=== PATIENT | male | born 1995 | race Caucasian/White ===

== ENCOUNTER 2018-12-22 10:44 | Inpatient (IN) | payer BC ==
[~2018-12-22] VITALS: Ht 170.2 cm; Wt 54.0 kg
[2018-12-22 11:04] VITALS: BP 108/74
--- NOTE | 2018-12-22 11:07 | NUR ---
ED Nurse Note: pt walked in to ER c/o Nausea and vomiting with blood in it and abdominal pain 07/14. pt currently vomiting saliva. pt aao x4 and skin clean but cool to touch and pale. pt ambulatory and cooperative.
[2018-12-22] MEDS ORDERED: Morphine Sulfate 4mg/ml Inj (IV USE ONLY) IVP ONE ×2 (11:15→12:15)
[2018-12-22 11:31] LABS: HEMATOCRIT 49.1 % (42.0-52.0); HEMOGLOBIN 17.2 G/DL (14.2-18.0); MEAN CORPUSCULAR VOLUME 89 FL (80-99); PLATELET COUNT 275 K/UL (150-450); RED BLOOD COUNT 5.49 M/UL (4.70-6.10); RED CELL DISTRIBUTION WIDTH 11.2 % (11.6-14.8)
[2018-12-22 11:33] LABS: WHITE BLOOD COUNT 22.9 K/UL (4.8-10.8)
[2018-12-22 11:44] LABS: ANION GAP 18 mmol/L (5-15); BLOOD UREA NITROGEN 26 mg/dL (7-18); CALCIUM 9.3 MG/DL (8.5-10.1); CARBON DIOXIDE 24 MMOL/L (21-32); CHLORIDE 100 MMOL/L (98-107); CREATININE 1.2 MG/DL (0.55-1.30); POTASSIUM 3.3 MMOL/L (3.5-5.1); SODIUM 142 MMOL/L (136-145)
[2018-12-22 11:54] LABS: ALANINE AMINOTRANSFERASE 1165 U/L (12-78); ALBUMIN 4.5 G/DL (3.4-5.0); ALBUMIN/GLOBULIN RATIO 1.3 (1.0-2.7); ALKALINE PHOSPHATASE 166 U/L (46-116); ASPARTATE AMINO TRANSFERASE 1296 U/L (15-37); BILIRUBIN,TOTAL 1.3 MG/DL (0.2-1.0)
[2018-12-22 11:55] LABS: BILIRUBIN,DIRECT 0.7 MG/DL (0.0-0.3)
[2018-12-22 12:02] VITALS: BP 138/84
--- NOTE | 2018-12-22 12:14 | NUR ---
ED Nurse Note: Patient c/o pain all over the body and HR increased to 145 @ 1200. EKG performed and reviewed by Dr. Saunders. Report given to Audi Rutledge RN.
--- NOTE | 2018-12-22 12:23 | NUR ---
ED Nurse Note: spoke to pt's mom and updated on pt's condition and possible admission. she agreed. pt was informed as well and agreed.
--- NOTE | 2018-12-22 12:27 | NUR ---
ED Nurse Note: mother [phone] or [phone]
[2018-12-22] MEDS ORDERED: Isovue-300 100ml vial INJ PRN (12:30)
[2018-12-22 13:13] LABS: APPEARANCE,URINE CLEAR; BILIRUBIN, URINE NEGATIVE (NEGATIVE); COLOR,URINE PALE YELLOW; GLUCOSE, URINE (UA) NEGATIVE (NEGATIVE); KETONES,URINE 4+ (NEGATIVE); LEUKOCYTE ESTERASE ,URINE NEGATIVE (NEGATIVE); NITRITE,URINE NEGATIVE (NEGATIVE); PH,URINE 5 (4.5-8.0); PROTEIN,URINE 1+ (NEGATIVE); UROBILINOGEN,URINE NORMAL MG/DL (0.0-1.0)
--- NOTE | 2018-12-22 13:50 | NUR ---
ED Nurse Note: pt requested food and drink. Received verbal order that pt cannot eat and drink besides ice chips. ice chips provided.
--- NOTE | 2018-12-22 13:54 | Emergency Room Report ---
History of Present Illness General Chief Complaint: Abdominal Pain Source: Patient Present Illness HPI Patient presents emergency department today complaint severe epigastric pain associate nausea and vomiting. Patient states that he was drinking very heavily last night. He does not usually drink a large amount alcohol although in the past he has gotten severely ill from drinking a large amount alcohol and binge drinking. Patient denies any drug use. Denies any fever chest pain or shortness of breath. Pain is worse in the epigastrium. Denies any rectal bleeding hemoptysis. Symptoms noted to be severe.No other modifying factors. No other associated signs and symptoms. No other complaints were noted. Allergies: Coded Allergies: No Known Allergies (Unverified , 12/22/18) Patient History Past Medical History: none Past Surgical History: none Pertinent Family History: none Social History: Reports: alcohol use Reviewed Nursing Documentation: PMH: Agreed; PSxH: Agreed Nursing Documentation-PMH Past Medical History: No Stated History Review of Systems All Other Systems: negative except mentioned in HPI Physical Exam Vital Signs Date Time Temp Pulse Resp B/P (MAP) Pulse Ox O2 Delivery O2 Flow Rate FiO2 12/22/18 10:48 95.9 115 20 137/92 97 Room Air Sp02 EP Interpretation: reviewed, normal General Appearance: alert, severe distress Head: atraumatic Eyes: bilateral eye normal inspection ENT: normal ENT inspection, hearing grossly normal, normal voice Neck: normal inspection, full range of motion, supple, no bony tend Respiratory: normal inspection, lungs clear, normal breath sounds, no respiratory distress, no retraction, no wheezing Cardiovascular #1: no edema, tachycardia Gastrointestinal: normal inspection, normal bowel sounds, soft, no guarding, no hernia, tenderness - Epigastric Genitourinary: no CVA tenderness Musculoskeletal: normal inspection, back normal, normal range of motion Neurologic: normal inspection, alert, responsive, speech normal Psychiatric: normal inspection, judgement/insight normal, mood/affect normal Skin: normal inspection, normal color, no rash Medical Decision Making Diagnostic Impression: Primary Impression: Alcoholic hepatitis Additional Impressions: Abdominal pain Intractable vomiting Renal mass ER Course Patient presents to the emergency department today complaining of abdominal pain. Differential considerations include acute pancreatitis, cholecystitis, gastritis, hepatitis, appendicitis just to name a few. Given the severity of the patient's presentation I felt this is a highly complex patient. This patient required extensive workup. Patient's laboratory workup shows an elevated white blood cell count and elevated liver enzymes. This is consistent with acute severe alcoholic hepatitis. However because severe he patient's pain presentation CT scan was performed. 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 Patient actually states that he's had a workup for this in the past including a liver biopsy. CT scan however also show some abnormality in patient's kidneys. Because of this a renal ultrasound was ordered. Patient was given pain medications fluids feels better. Patient's tachycardia resolved. Case was discussed with Dr. Juan Carlos Tavarez. Patient will be admitted to the hospital further treatment and evaluation. Labs Test 12/22/18 11:10 12/22/18 13:10 White Blood Count 22.9 K/UL (4.8-10.8) Red Blood Count 5.49 M/UL (4.70-6.10) Hemoglobin 17.2 G/DL (14.2-18.0) Hematocrit 49.1 % (42.0-52.0) Mean Corpuscular Volume 89 FL (80-99) Mean Corpuscular Hemoglobin 31.3 PG (27.0-31.0) Mean Corpuscular Hemoglobin Concent 35.0 G/DL (32.0-36.0) Red Cell Distribution Width 11.2 % (11.6-14.8) Platelet Count 275 K/UL (150-450) Mean Platelet Volume 6.9 FL (6.5-10.1) Neutrophils (%) (Auto) % (45.0-75.0) Lymphocytes (%) (Auto) % (20.0-45.0) Monocytes (%) (Auto) % (1.0-10.0) Eosinophils (%) (Auto) % (0.0-3.0) Basophils (%) (Auto) % (0.0-2.0) Differential Total Cells Counted 100 Neutrophils % (Manual) 80 % (45-75) Lymphocytes % (Manual) 15 % (20-45) Monocytes % (Manual) 3 % (1-10) Eosinophils % (Manual) 0 % (0-3) Basophils % (Manual) 0 % (0-2) Band Neutrophils 2 % (0-8) Platelet Estimate Adequate Platelet Morphology Normal Prothrombin Time 10.3 SEC (9.30-11.50) Prothromb Time International Ratio 1.0 (0.9-1.1) Activated Partial Thromboplast Time 22 SEC (23-33) Sodium Level 142 MMOL/L (136-145) Potassium Level 3.3 MMOL/L (3.5-5.1) Chloride Level 100 MMOL/L (98-107) Carbon Dioxide Level 24 MMOL/L (21-32) Anion Gap 18 mmol/L (5-15) Blood Urea Nitrogen 26 mg/dL (7-18) Creatinine 1.2 MG/DL (0.55-1.30) Estimat Glomerular Filtration Rate > 60 mL/min (>60) Glucose Level 84 MG/DL (74-106) Calcium Level 9.3 MG/DL (8.5-10.1) Total Bilirubin 1.3 MG/DL (0.2-1.0) Direct Bilirubin 0.7 MG/DL (0.0-0.3) Aspartate Amino Transf (AST/SGOT) 1296 U/L (15-37) Alanine Aminotransferase (ALT/SGPT) 1165 U/L (12-78) Alkaline Phosphatase 166 U/L (46-116) Total Protein 8.0 G/DL (6.4-8.2) Albumin 4.5 G/DL (3.4-5.0) Globulin 3.5 g/dL Albumin/Globulin Ratio 1.3 (1.0-2.7) Lipase 130 U/L (73-393) Urine Color Pale yellow Urine Appearance Clear Urine pH 5 (4.5-8.0) Urine Specific [place] 1.020 (1.005-1.035) Urine Protein 1+ (NEGATIVE) Urine Glucose (UA) Negative (NEGATIVE) Urine Ketones 4+ (NEGATIVE) Urine Blood 1+ (NEGATIVE) Urine Nitrite Negative (NEGATIVE) Urine Bilirubin Negative (NEGATIVE) Urine Urobilinogen Normal MG/DL (0.0-1.0) Urine Leukocyte Esterase Negative (NEGATIVE) EKG Diagnostic Results Rate: tachycardiac Rhythm: NSR ST Segments: no acute changes Rhythm Strip Diag. Results EP Interpretation: yes Rate: 141 Rhythm: NSR, no PVC's, no ectopy CT/MRI/US Diagnostic Results CT/MRI/US Diagnostic Results : Imaging Test Ordered: CT abdomen and pelvis Impression Impression: Limited assessment of the GI tract, due to lack of enteric contrast demonstration Questionable slight inflammation of the abdominal fat adjacent to the ascending colon. No definite underlying colonic pathology to suggest colitis. No other definite acute abnormality Bilateral round renal lesions demonstrate soft tissue attenuation. Suspect that these represent hyperdense proteinaceous cysts, but solid mass lesion as etiology of these is also possible. Recommend follow-up imaging with either ultrasound or noncontrast renal CT Nonobstructive 4 mm left interpolar region calyceal calculus Left renal cysts. Subcentimeter bilateral low-attenuation renal lesions, too small to characterize, most likely benign simple cysts. No further follow-up necessary Unusual finding of absent pancreatic tail and body. Presumably congenital Bilateral L5 spondylolysis. No evidence of spondylolisthesis Findings discussed by phone with Dr. Saunders in the emergency room at the time of interpretation The CT scanner at [facility] is accredited by the [employer] and the scans are performed using protocols designed to limit radiation exposure to as low as reasonably achievable to attain images of sufficient resolution adequate for diagnostic evaluation. Last Vital Signs Date Time Temp Pulse Resp B/P (MAP) Pulse Ox O2 Delivery O2 Flow Rate FiO2 12/22/18 12:45 97.5 12/22/18 12:02 143 20 138/84 95 Room Air Status: improved Disposition: ADMITTED INPATIENT Condition: Serious Referrals: NOT CHOSEN IPA/,REFERRING (PCP) Robin Saunders MD Dec 22, 2018 13:54
--- NOTE | 2018-12-22 14:17 | Diagnostic Imaging Report ---
Clinical Indication: Nausea, vomiting, 10 out of 10 abdominal pain, vomiting blood Technique: No oral contrast utilized, per emergency room physician request. IV administration nonionic contrast. Venous phase spiral acquisition obtained through the abdomen and pelvis. Multiplanar reconstructions were generated. Total dose length product 489.16 mGycm. CTDIvol(s) 9.84 mGy. Dose reduction achieved using automated exposure control Comparison: none Findings: Lack of enteric contrast limits assessment of the GI tract. The appendix is normal. There is suggestion of slight increased attenuation of the pericolonic fat adjacent to the ascending colon and hepatic flexure, but no colon wall thickening is evident in this area. There is no evidence of diverticulosis or diverticulitis. No small bowel distention. No free or loculated intraperitoneal gas or fluid. The stomach is nondistended, so cannot be adequately assessed for wall thickening. No gross gastric or duodenal abnormality demonstrated. The distal esophagus is unremarkable. The pancreas demonstrates only a pancreatic head and uncinate process. No pancreatic body or tail are demonstrated. The liver, gallbladder, bile ducts, spleen, adrenals are unremarkable. No retroperitoneal or mesenteric mass or adenopathy. No pelvic mass or adenopathy. The left kidney demonstrates a round lesion in the interpolar region which measures 13 mm in diameter, demonstrates soft tissue attenuation. It is adjacent to a cyst. A similar lesion is seen in the right renal upper pole. Other cysts are seen within the left kidney. Both kidneys demonstrate subcentimeter low-attenuation lesions which are too small to characterize. There is a lower pole low-attenuation lesion which demonstrates some peripheral enhancement or calcification. There is a 4 mm calculus within an interpolar calyx on the left. The included lung bases are clear. The bones demonstrate bilateral L5 pars interarticularis defects. No associated spondylolisthesis or degenerative change. Impression: Limited assessment of the GI tract, due to lack of enteric contrast demonstration Questionable slight inflammation of the abdominal fat adjacent to the ascending colon. No definite underlying colonic pathology to suggest colitis. No other definite acute abnormality Bilateral round renal lesions demonstrate soft tissue attenuation. Suspect that these represent hyperdense proteinaceous cysts, but solid mass lesion as etiology of these is also possible. Recommend follow-up imaging with either ultrasound or noncontrast renal CT Nonobstructive 4 mm left interpolar region calyceal calculus Left renal cysts. Subcentimeter bilateral low-attenuation renal lesions, too small to characterize, most likely benign simple cysts. No further follow-up necessary Unusual finding of absent pancreatic tail and body. Presumably congenital Bilateral L5 spondylolysis. No evidence of spondylolisthesis Findings discussed by phone with Dr. Saunders in the emergency room at the time of interpretation The CT scanner at [facility] is accredited by the [employer] and the scans are performed using protocols designed to limit radiation exposure to as low as reasonably achievable to attain images of sufficient resolution adequate for diagnostic evaluation.
--- NOTE | 2018-12-22 14:33 | NUR ---
ED Nurse Note: attempted to give report and was told to call back in 10 minutes. will try again.
--- NOTE | 2018-12-22 14:49 | NUR ---
ED Nurse Note: Report given to CT Daley.
[2018-12-22 14:55] VITALS: BP 138/84
--- NOTE | 2018-12-22 14:58 | NUR ---
ED Nurse Note: pt left department with 1 air analysis technician.
--- NOTE | 2018-12-22 15:15 | NUR ---
NURSE NOTES: Patient arrived on unit via gurney. Assisted to bed, tolerated well. Patient is stable, no vomiting noted. Patient complains of pain, notified MD. Patient's skin is clean, dry, and intact. All belongings accounted for. Patient encouraged to use call light for assistance, verbalized understanding. Patient oriented to room, call light, and unit. Patient in bed with call light within reach. Will continue to monitor.
--- NOTE | 2018-12-22 15:26 | NUR ---
CHARGE NURSE NOTE: Received patient from ER. Alert, oriented x4, complains of nausea, abd. pain 03/14. was called, message left for adm. orders. Macy ('s [employer] physician office secretary) said that he will put orders by himself.
--- NOTE | 2018-12-22 16:17 | NUR ---
CHARGE NURSE NOTE: was called second time for adm.orders. Spoke with Macy (stenographer secretary) her response was " Dr. Tavarez will put orders soon".
[2018-12-22] MEDS ORDERED: Morphine Sulfate 4mg/ml Inj (IV USE ONLY) IVP PRN (16:30)
--- NOTE | 2018-12-22 16:57 | NUR ---
NURSE NOTES: Patient taken downstairs for ultrasound via wheelchair.
--- NOTE | 2018-12-22 17:15 | NUR ---
NURSE NOTES: Patient returned to unit. Assisted to bed, tolerated well. Patient is stable, denies pain at this time. Will continue to monitor.
--- NOTE | 2018-12-22 17:21 | Diagnostic Imaging Report ---
Indication: Abnormal renal function tests, abdominal pain, evaluation of abnormality demonstrated on recent CT scan Technique: Grayscale and duplex images of the kidneys, retroperitoneum, and bladder were obtained. Comparison: Findings: Right kidney measures 10.1 cm in length. Left kidney measures 10.6 cm in length. Both kidneys demonstrate normal echogenicity. No hydronephrosis. Evaluation of the upper pole the right kidney demonstrates a cyst in the location of the previously demonstrated high attenuation abnormality. Evaluation of the left kidney demonstrates a complex cyst with septation in the periphery of the right kidney corresponding to the CT findings. A renal sinus calcification corresponds to the nonobstructive calculus described on the recent CT. No findings are demonstrated that would correspond to the lower pole renal sinus high attenuation demonstrated on recent CT. Normal inferior vena cava. Bladder demonstrates a prevoid volume of 510 mm, and a postvoid volume of 86 mL. Impression: Right upper pole and left lower pole soft tissue tissue attenuation lesions described on recent CT scan are both demonstrated to be cysts, presumably proteinaceous Nonobstructive left renal sinus calculus, also demonstrated on recent CT No definite finding to correspond to the high attenuation seen in the left lower pole renal sinus. That may represent one or more small calculi, or could represent contrast beginning to fill the lower pole collecting system.
[2018-12-22] MEDS: Piperacillin/Tazobactam 3.375 GM in D5W 110 ML IVPB SCH (17:22)
[2018-12-22] MEDS: NS w/KCl 20mEq 1,000 ML IV SCH (17:22)
--- NOTE | 2018-12-22 19:30 | NUR ---
HAND-OFF: Report given to Marlon FOFANA. Patient is stable.
--- NOTE | 2018-12-22 19:45 | NUR ---
NURSE NOTES: Seen pt on initial rounding, pt resting in bed, AAOX3. Denies pain or nausea at this time. IVF infusing well to RAC intact/patent. Call light with in reach
[2018-12-22 20:00] VITALS: BP 99/58
[2018-12-22 21:00] VITALS: BP 99/58
--- NOTE | 2018-12-22 23:25 | NUR ---
NURSE NOTES: Attending, Dr. Tavarez seen pt. MD discussed treatment plan w/ pt and f/u labs in am. Pt stated feeling better this evening. IVF infusing well, NPO status. Pt denies abdominal pain and nausea at this time, VSS.
[2018-12-23] VITALS: BP 94/51
[2018-12-23] MEDS: NS w/KCl 20mEq 1,000 ML IV SCH ×4 (00:03→21:41)
[2018-12-23] MEDS: Piperacillin/Tazobactam 3.375 GM in D5W 110 ML IVPB SCH ×2 (00:06→09:04)
--- NOTE | 2018-12-23 02:45 | Consultation ---
DATE OF CONSULTATION: 12/22/2018 NOTE: "POOR AUDIO QUALITY" GASTROENTEROLOGY CONSULTATION CHIEF COMPLAINT: I was asked to see this patient by Dr. Juan Carlos Tavarez for evaluation of upper gastrointestinal bleeding and alcoholic-induced hepatitis. HISTORY OF PRESENT ILLNESS: The patient is a 23-year-old man, who states that he was in the constitution party last night and he drank many shots of . He also smoked some marijuana. However, he denies using any form of drugs or medications or even [id number] products. Subsequently the next morning, which is today, he felt abdominal pain and had nausea and vomiting productive of red blood. He came to the emergency room where he was evaluated. He denies any melena and his stools are brown. After few hours of supportive care, he actually feels back to normal now. He has had no more abdominal pain or nausea or vomiting. He did have a CT scan of the abdomen and pelvis, which showed an anatomical defect, which he already knew about. The body and the tail of the pancreas are congenitally missing and he only has an uncinate process there. There were however no other biliary or liver abnormalities. Of note, however that the patient does have a previous history of mild transaminitis going back to his high school years. He recalls getting a liver biopsy in high school. He does not recall having any definitive diagnosis of liver disease at that time. He states that his liver enzymes are 20 points or so higher than normal, but today in the emergency room, his transaminases were in the 1200 range. The patient has no family history of liver disease. PAST MEDICAL HISTORY: Remarkable for, 1. 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 2. Longstanding history of mild transaminitis going back to high school years without definitive diagnosis. 3. One prior episode of similar upper gastrointestinal bleeding, which was treated conservatively and no endoscopy in [place]. MEDICATIONS: As an outpatient, none. FAMILY HISTORY: Negative for gastrointestinal disorder. SOCIAL HISTORY: The patient is single. He smokes marijuana periodically and he drinks occasionally, but not every day. 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 REVIEW OF SYSTEMS: Otherwise negative. PHYSICAL EXAMINATION: GENERAL: A well-developed thin young man, seen in his room. HEENT: Normocephalic and atraumatic. Sclerae are anicteric. Oropharynx is clear. NECK: Supple. CHEST: Clear to auscultation. CARDIOVASCULAR: Revealed a regular rate. ABDOMEN: Soft and flat with good bowel sounds. There is no organomegaly including no liver enlargement. EXTREMITIES: Revealed no edema. LABORATORY AND DIAGNOSTIC DATA: Laboratory data and imaging studies were noted. ASSESSMENT: This patient presents with high level of transaminitis with AST and ALT being about the same range, which is somewhat atypical for alcoholic hepatitis. Also, the degree of transaminitis is unusually high for alcoholic-induced liver disease. He may however have some possible underlying liver pathology, which is chronic and in that case, the response to alcoholic liver toxicities may have been different than usual. I would follow liver tests closely and do the routine evaluations for liver disease including acute viral markers. CT imaging studies already been done and there was no structural pathology to evaluate. The patient was strongly advised to avoid drinking alcohol since it brought him into the hospital. The patient was advised to follow up with the gastrointestinal service as an outpatient to reevaluate the cause of his chronic liver disease. He also was advised that alcohol consumption could damage the pancreas and he already has an anatomical deficit possibly making him more predisposed to pancreatitis. His lipase however at this time is normal and his abdomen is nontender. With respect to his upper gastrointestinal bleeding, the patient did have some degree of hematemesis, which is self-reported, but it did not recur and the patient's blood count is normal. The patient likely has case of alcoholic gastritis, which normally resolves uneventfully with treatment. I will hold off on endoscopy at this time given the magnitude of his transaminases. Endoscopy can be considered the following day. However, I suspect that his gastrointestinal luminal pathology is transient and limited in magnitude. RECOMMENDATIONS: 1. Follow liver transaminases. 2. Check viral hepatitis markers. 3. IV hydration. 4. Proton pump inhibitor. 5. Consider endoscopy once liver parameters improved. 6. The patient to avoid alcohol. Janene Cr M.D. DR: MONTEZ JOB#: [id number] CC: SHANE
[2018-12-23 04:00] VITALS: BP 102/57
--- NOTE | 2018-12-23 07:01 | NUR ---
CASE MANAGEMENT:REVIEW 23 YR OLD MALE TO ER CC: ABDOMINAL PAIN. N/V. BLOOD IN VOMIT SI: ALCOHOLIC HEPATITIS. INTRACTABLE VOMITING. UGIB 95.9 115 20 137/92 97% ON RA WBC+22.9 K-3.3 AST/ALT+1296/1165 IS: IV ZOFRAN IV PEPCID IV MORPHINE 1L NS BOLUS X2 CT ABD/PELVIS RENAL US : TO MED/SURG 3 EAST PLAN: CLEAR LIQUID GI CONSULT INTERQUAL CRITERIA MET
--- NOTE | 2018-12-23 07:45 | NUR ---
NURSE NOTES: Received report from Galina FOFANA. Patient is awake alert and oriented x4, no acute distress noted. IVF running per order. IV intact and asymptomatic. Patient reporting no pain. Side rails upx3, bed low and locked, call light in reach. Will continue to monitor.
--- NOTE | 2018-12-23 07:45 | NUR ---
HAND-OFF: Report given to CT Carrillo.
[2018-12-23 08:00] VITALS: BP 107/66
[2018-12-23 08:00] LABS: ALANINE AMINOTRANSFERASE 571 U/L (12-78); ALBUMIN 3.1 G/DL (3.4-5.0); ALBUMIN/GLOBULIN RATIO 1.2 (1.0-2.7); ALKALINE PHOSPHATASE 108 U/L (46-116); ANION GAP 12 mmol/L (5-15); ASPARTATE AMINO TRANSFERASE 300 U/L (15-37); BILIRUBIN,TOTAL 1.1 MG/DL (0.2-1.0); BLOOD UREA NITROGEN 17 mg/dL (7-18); CALCIUM 7.8 MG/DL (8.5-10.1); CARBON DIOXIDE 27 MMOL/L (21-32); CHLORIDE 102 MMOL/L (98-107); CREATINE KINASE 2294 U/L (26-308); CREATININE 0.9 MG/DL (0.55-1.30); POTASSIUM 3.5 MMOL/L (3.5-5.1); SODIUM 141 MMOL/L (136-145)
[2018-12-23 08:02] LABS: BILIRUBIN,DIRECT 0.2 MG/DL (0.0-0.3)
[2018-12-23 09:39] LABS: BASOPHILS % (AUTO) 0.9 % (0.0-2.0); EOSINOPHILS % (AUTO) 0.3 % (0.0-3.0); HEMATOCRIT 40.4 % (42.0-52.0); HEMOGLOBIN 13.9 G/DL (14.2-18.0); LYMPHOCYTES % (AUTO) 18.4 % (20.0-45.0); MEAN CORPUSCULAR VOLUME 89 FL (80-99); MONOCYTES % (AUTO) 7.8 % (1.0-10.0); NEUTROPHILS % (AUTO) 72.7 % (45.0-75.0); PLATELET COUNT 178 K/UL (150-450); RED BLOOD COUNT 4.52 M/UL (4.70-6.10); RED CELL DISTRIBUTION WIDTH 11.5 % (11.6-14.8); WHITE BLOOD COUNT 8.6 K/UL (4.8-10.8)
--- NOTE | 2018-12-23 10:34 | NUR ---
*-* INSURANCE *-* ALL CLINICALS AND REVIEW FAXED Bailee: TASHA Allan;[phone] REF# [id number]
[2018-12-23 12:00] VITALS: BP 115/67
--- NOTE | 2018-12-23 13:45 | History and Physical Report ---
DATE OF ADMISSION: 12/22/2018 REASON FOR ADMISSION: Abdominal pain with probable pancreatitis. HISTORY OF PRESENT ILLNESS: This is a 23-year-old white male who states that he was drinking alcohol heavily last night and got quite ill from this binge drinking. He subsequently developed mid epigastric pain with nausea and vomiting, but no signs of blood. He came to the emergency room and was noted to have abnormal hepatobiliary enzymes and hospitalization was initiated. The patient states that he had a similar episode several years ago when he drank heavily as well. He was in the hospital for 2 nights and recovered. He notes that he usually drinks, but rarely heavily. PAST MEDICAL HISTORY: Wong Danlos syndrome ALLERGIES: None. MEDICATIONS: None. SOCIAL HISTORY: Nonsmoker. Alcohol, binge drinking as noted. No substance abuse. REVIEW OF SYSTEMS: A 10-point review of systems otherwise unremarkable. PHYSICAL EXAMINATION: VITAL SIGNS: Blood pressure 137/92, pulse 115, respiratory rate 20, afebrile in the emergency room. Subsequent vitals 99/58, pulse 71, respiratory rate 18. HEENT: Conjunctivae are pink. Oropharynx is clear. Sclerae are anicteric. NECK: Supple. LUNGS: Clear. CARDIOVASCULAR: Regular. Normal S1, S2. No murmur. ABDOMEN: Soft. Mild midepigastric tenderness. No guarding or rebound. EXTREMITIES: Without edema. NEUROLOGIC: Nonfocal. DIAGNOSTIC DATA: Renal ultrasound is notable for right upper and left lower pole renal cyst with possible small calculi. Abdominal pelvic CT reveals no evidence of colitis. Renal masses versus cysts and nonobstructive calculus on the left, absent pancreatic tail and body, spondylosis. LABORATORY DATA: White count 22.9, hemoglobin 17.2. Sodium 142, potassium 3.3, BUN 26, creatinine 1.2. AST and ALT 1296 and 1165. Alkaline phosphatase 166. INR is 1. Urinalysis, no active sediment. EKG: Atrial fibrillation with RVR. IMPRESSION: Acute alcoholic hepatitis, renal cysts, renal calculi, leukocytosis, hypokalemia, hypovolemia and dehydration, paroxysmal atrial fibrillation. PLAN: Volume resuscitation, NPO, replace potassium, follow up hepatic enzymes, withdrawal precautions. Reassess for antimicrobials. Repeat electrocardiogram. The patient was counseled regarding long-term risks of alcohol binge drinking. Juan Carlos Tavarez M.D. DR: DEENA JOB#: [id number] CC: SHANE
[2018-12-23 16:00] VITALS: BP 118/71
--- NOTE | 2018-12-23 16:39 | NUR ---
Social Service Note SW met with patient to address ETOH dependency. Patient is alert, oriented and verbally responsive. Patient denies ETOH dependency. Patient states he only drinks heavily at parties. SW attempted to provide patient resources provided by [facility] [phone] of service providers. Patient declined resources and stated he doesn't have a problem. Patient will return home once medically appropriate. SW available as needed.
--- NOTE | 2018-12-23 19:00 | Progress Note ---
DATE: 12/23/2018 SUBJECTIVE: The patient has no new complaints. He is anxious to go home. No shortness of breath. No chest pain. No palpitations. No nausea, vomiting, or abdominal pain. OBJECTIVE: VITAL SIGNS: Blood pressure 94/51, pulse 88, respiratory rate 18, and afebrile. LUNGS: Clear. CARDIAC: Regular. Normal S1, S2. ABDOMEN: Soft. EXTREMITIES: No edema. LABORATORY AND DIAGNOSTIC DATA: EKG from admission is now found and reviewed and notable for atrial fibrillation with nonspecific ST-T wave changes and increased ventricular response. Labs today are notable for white count normalizing to 8.6, hemoglobin 13.9, CK 2294, AST and ALT decreasing to 300 and 571 respectively. Chemistry panel within normal limits otherwise and albumin 3.1. TSH 0.258. IMPRESSION: 1. Alcohol abuse with intoxication, now recovered. No withdrawal symptoms noted. 2. Paroxysmal atrial arrhythmias due to alcohol. 3. Rhabdomyolysis. 4. Possible alcoholic hepatitis. 5. Hypokalemia, corrected. 6. Mild protein-calorie malnutrition. PLAN: 1. Continue hydration. 2. Replace electrolytes. 3. Monitor liver function. 4. Monitor CK level. 5. Repeat EKG. 6. Counseling regarding abstinence from alcohol. Juan Carlos Tavarez M.D. DR: CHARLY JOB#: [id number] CC:
--- NOTE | 2018-12-23 19:36 | NUR ---
HAND-OFF: Report given to Rosa FOFANA. Patient is in stable condition.
--- NOTE | 2018-12-23 19:37 | NUR ---
NURSE NOTES: Received report & pt from CT Carrillo. Pt lying in bed, a&ox4, in room air. No s/s of acute distress & no c/o pain. IV site intact with IVF running as ordered. Bed in lowest position, call light within reach. Will continue to monitor.
[2018-12-23 20:00] VITALS: BP 102/69
[2018-12-24] VITALS: BP 112/56
[2018-12-24] MEDS: NS w/KCl 20mEq 1,000 ML IV SCH ×3 (03:20→15:33)
[2018-12-24 04:00] VITALS: BP 96/56
--- NOTE | 2018-12-24 07:15 | Progress Note ---
DATE: 12/23/2018 SUBJECTIVE: The patient feels better today. He denies abdominal pain, nausea, vomiting. He has been started on clear liquid diet and is tolerating it well. Lab results were discussed with the patient and he was strongly encouraged to permanently discontinue alcohol use. OBJECTIVE: GENERAL: Thin white man, seen in his room. HEENT: Normocephalic and atraumatic. Sclerae anicteric. Oropharynx clear. NECK: Supple. CHEST: Clear to auscultation. CARDIOVASCULAR: Regular rate. ABDOMEN: Soft and nontender with good bowel sounds. EXTREMITIES: Revealed no edema. NEUROLOGIC: Grossly nonfocal. LABORATORY DATA: Noted. ASSESSMENT: This patient presents with significant rise is his liver tests which are likely predominantly due to rhabdomyolysis given the elevated CPK. The rise, however, could also be due to degree of alcoholic hepatitis which would be difficult to quantitate. The treatment at this point will be conservative. The patient should resolve uneventfully with IV hydration and supportive care. RECOMMENDATIONS: 1. Continue IV hydration. 2. Follow laboratory parameters and exam. 3. Continue proton pump inhibitor. 4. The patient declined endoscopic evaluation at this time. 5. The patient was advised to abstain from alcohol. 6. Follow laboratory parameters and exam. Janene Cr M.D. DR: Saba JOB#: [id number] CC:
--- NOTE | 2018-12-24 07:30 | NUR ---
HAND-OFF: Report given to CT Gonzalez
--- NOTE | 2018-12-24 07:35 | NUR ---
NURSE NOTES: Patient lying in bed awake. No complain of pain or distress at this time. Skin intact and dry. IV dressing intact and dry. IV fluid on going as ordered. Bed lowest position. Call light within reach. Will continue to monitor.
[2018-12-24 08:00] VITALS: BP 106/67
[2018-12-24 08:10] LABS: EOSINOPHILS % (AUTO) 1.5 % (0.0-3.0); HEMATOCRIT 40.4 % (42.0-52.0); HEMOGLOBIN 14.4 G/DL (14.2-18.0); LYMPHOCYTES % (AUTO) 30.1 % (20.0-45.0); MEAN CORPUSCULAR VOLUME 90 FL (80-99); NEUTROPHILS % (AUTO) 57.5 % (45.0-75.0); PLATELET COUNT 163 K/UL (150-450); RED BLOOD COUNT 4.51 M/UL (4.70-6.10); RED CELL DISTRIBUTION WIDTH 11.4 % (11.6-14.8); WHITE BLOOD COUNT 5.6 K/UL (4.8-10.8)
[2018-12-24 08:42] LABS: ALANINE AMINOTRANSFERASE 465 U/L (12-78); ALKALINE PHOSPHATASE 96 U/L (46-116); ASPARTATE AMINO TRANSFERASE 338 U/L (15-37); BILIRUBIN,DIRECT 0.1 MG/DL (0.0-0.3); BILIRUBIN,TOTAL 0.5 MG/DL (0.2-1.0); CREATINE KINASE > 10000 U/L (26-308)
[2018-12-24 08:44] LABS: ALANINE AMINOTRANSFERASE 465 U/L (12-78); ALBUMIN/GLOBULIN RATIO 1.1 (1.0-2.7); ALKALINE PHOSPHATASE 96 U/L (46-116); ANION GAP 4 mmol/L (5-15); ASPARTATE AMINO TRANSFERASE 338 U/L (15-37); BILIRUBIN,TOTAL 0.5 MG/DL (0.2-1.0); BLOOD UREA NITROGEN 10 mg/dL (7-18); CALCIUM 8.1 MG/DL (8.5-10.1); CARBON DIOXIDE 31 MMOL/L (21-32); CHLORIDE 106 MMOL/L (98-107); CREATININE 0.7 MG/DL (0.55-1.30); POTASSIUM 3.7 MMOL/L (3.5-5.1); SODIUM 141 MMOL/L (136-145)
--- NOTE | 2018-12-24 10:22 | NUR ---
Social Work This Sw met with patient to discuss his substance abuse (alcohol). Patient denies that he has a problem with substance abuse, does not want any resources at this time. This Sw briefly discussed risks involved with substance abuse. 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 Patient denied any depression, suicidal/homicidal ideations. No other needs/concerns at this time.
[2018-12-24 12:00] VITALS: BP 117/74
--- NOTE | 2018-12-24 13:10 | NUR ---
NURSE NOTES: Collected urine specimen and sent to lab.
[2018-12-24 14:16] LABS: CREATINE KINASE > 10000 U/L (26-308)
--- NOTE | 2018-12-24 14:37 | NUR ---
NURSE NOTES: Called and left massage to regarding Total Creatine Kinase level 17,353. Waiting for call back.
--- NOTE | 2018-12-24 15:01 | NUR ---
RD ASSESSMENT & RECOMMENDATIONS SEE CARE ACTIVITY FOR COMPLETE ASSESSMENT DAILY ESTIMATED NEEDS: Needs based on Underweight, suspected wt loss, liver 59kg 30-35 kcals/kg 5073-1308 total kcals 1-1.5 g protein/kg 59-89 g total protein 25-30 mL/kg 3880-3300 total fluid mLs NUTRITION DIAGNOSIS: Increased kcal and protein needs r/t underweight status as evidenced by pt is 88% of [place] Body Weight, w/ possible additional wt loss of 11# per standing scale, adm w. Rhabdo and ETOH abuse. CURRENT DIET: Regular PO DIET RECOMMENDATIONS: LOW NA DIET ADDITIONAL RECOMMENDATIONS: 1) Obtain a weekly standing scale wt 2) Add snacks in b/w meals 3) Add Ensure Enlive qdaily (350 kcal/ 20g pro each)
--- NOTE | 2018-12-24 15:32 | General Progress Note ---
Assessment/Plan Assessment/Plan Assessment - EtOH abuse - abnormal LFT, mostly due to Rhabdo - Rhabdo - not clear why CK increasing - longstanding h/o abnormal LFT, ? etiology ( Hep A, B, C negative) - pancreas anomaly Recommendations - follow LFT - Follow CK - Aggressive IV hydration - PO ad sara - If CK abnormality continues, need to w/u for polymyositis Subjective Allergies: Coded Allergies: No Known Allergies (Unverified , 12/22/18) Subjective above noted feels well no abd pain no N/V tolerating PO Objective Last 24 Hour Vital Signs Date Time Temp Pulse Resp B/P (MAP) Pulse Ox O2 Delivery O2 Flow Rate FiO2 12/24/18 12:00 98.3 68 18 117/74 (88) 98 12/24/18 09:00 Room Air 12/24/18 08:00 98.2 67 19 106/67 (80) 95 12/24/18 04:00 98.0 64 18 96/56 (69) 95 12/24/18 00:00 97.9 68 18 112/56 (74) 96 12/23/18 21:00 Room Air 12/23/18 20:00 98.2 66 18 102/69 (80) 99 12/23/18 16:00 98.4 69 18 118/71 (87) 97 Intake and Output 12/23/18 12/24/18 18:59 06:59 Intake Total 2900 ml 480 ml Balance 2900 ml 480 ml Intake Oral 800 ml 480 ml IV Total 1100 ml Other 1000 ml # Voids 3 2 Laboratory Tests 12/24/18 05:18: White Blood Count 5.6, Red Blood Count 4.51L, Hemoglobin 14.4, Hematocrit 40.4L , Mean Corpuscular Volume 90, Mean Corpuscular Hemoglobin 31.8H, Mean Corpuscular Hemoglobin Concent 35.5, Red Cell Distribution Width 11.4L, Platelet Count 163, Mean Platelet Volume 7.6, Neutrophils (%) (Auto) 57.5, Lymphocytes (%) (Auto) 30.1, Monocytes (%) (Auto) 10.0, Eosinophils (%) (Auto) 1.5, Basophils (%) (Auto) 1.0 12/24/18 07:00: Total Bilirubin 0.5, Direct Bilirubin 0.1, Aspartate Amino Transf (AST/SGOT) 338H, Alanine Aminotransferase (ALT/SGPT) 465H, Alkaline Phosphatase 96, Total Creatine Kinase > 64570N, Total Protein 5.8L, Albumin 3.0L 12/24/18 07:30: Total Bilirubin 0.5, Aspartate Amino Transf (AST/SGOT) 338H, Alanine Aminotransferase (ALT/SGPT) 465H, Alkaline Phosphatase 96, Total Protein 5.8L, Albumin 3.0L, Sodium Level 141, Potassium Level 3.7, Chloride Level 106, Carbon Dioxide Level 31, Anion Gap 4L, Blood Urea Nitrogen 10, Creatinine 0.7, Estimat Glomerular Filtration Rate > 60, Glucose Level 97, Calcium Level 8.1L, Globulin 2.8, Albumin/Globulin Ratio 1.1 12/24/18 12:20: Total Creatine Kinase > 78857A 12/24/18 13:00: Urine Opiates Screen Negative, Urine Barbiturates Screen Negative, Phencyclidine (PCP) Screen Negative, Urine Amphetamines Screen Negative, Urine Benzodiazepines Screen Negative, Urine Cocaine Screen Negative, Urine Marijuana (THC) Screen Negative Height (Feet): 5 Height (Inches): 7.00 Weight (Pounds): 119 Objective WDWN NCAT suppple CTA RR abd soft ND NT no edema Janene Cr MD Dec 24, 2018 15:32
[2018-12-24 16:00] VITALS: BP 100/66
[2018-12-24] MEDS: D5W IV SCH ×2 (18:03→23:32)
[2018-12-24] MEDS: SODIUM BICARBONATE IV SCH ×2 (18:03→23:32)
[2018-12-24] MEDS: POTASSIUM CHLORIDE IV SCH ×2 (18:03→23:32)
--- NOTE | 2018-12-24 19:30 | NUR ---
HAND-OFF: Report given to Rosa FOFANA. Patient in stable condition.
--- NOTE | 2018-12-24 19:36 | NUR ---
CASE MANAGEMENT: REVIEW 12/24/2018 SI: ALCOHOLIC HEPATITIS. INTRACTABLE VOMITING. UGIB T 98.6 HR 59 RR 17 B/P 100/66 SATS 95% ON RA CA 8.1 AST 338 ALT 465 BNP >98220 IS: SODIUM BICARB @ 225 mL/HR PEPCID IV Q12H : TO MED/SURG 3 EAST PLAN: AGGRESSIVE HYDRATION
[2018-12-24 20:00] VITALS: BP 136/72
--- NOTE | 2018-12-24 23:30 | Progress Note ---
DATE: 12/24/2018 INTERNAL MEDICINE PROGRESS NOTE: SUBJECTIVE: The patient has no nausea or vomiting, but his appetite is poor. No abdominal pain noted. No muscle aches. Urine tox screen was negative. 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 Liver biopsy with history of transaminitis in the past, etiology unclear. He also gives a history of a known pancreatic anomaly. PHYSICAL EXAMINATION: VITAL SIGNS: Blood pressure 117/74, pulse 68, respirations 18, afebrile. NECK: Supple. LUNGS: Clear. CARDIAC: Regular. No murmur. ABDOMEN: Soft. No focal tenderness, guarding, or rebound. EXTREMITIES: Without edema. LABORATORY DATA: White count 5.6, hemoglobin 14. Sodium 141, potassium 3.7, bicarb 31, BUN 10, creatinine 0.7. CK is over 10,000. AST ALT is 338/465 with normal alkaline phosphatase. Albumin is 3.0. IMPRESSION: 1. Alcohol abuse. 2. Rhabdomyolysis, worsening despite hydration. 3. Mild-protein calorie malnutrition. 4. History of Wong-Danlos syndrome. 5. History of persisting transaminitis. 6. 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 7. Paroxysmal atrial fibrillation precipitated by alcohol intoxication. PLAN: 1. Continue IV hydration. 2. Renal evaluation. 3. Nutritional support. 4. Monitor liver function. 5. No antimicrobials presently needed. 6. o plan for anticoagulation or antiarrhythmic therapy 7. Hold discharge. Juan Carlos Tavarez M.D. DR: TREY JOB#: [id number] CC: SHANE
--- NOTE | 2018-12-25 00:10 | Cardiology Report ---
APPROVED REPORT EKG Measurement Heart [id number] Atrial fibrillation with RVR Abnormal ECG
--- NOTE | 2018-12-25 01:30 | NUR ---
NURSE NOTES: Reminded pt that urine sample is needed for urinalysis. Specimen cup at bedside.
[2018-12-25 04:00] VITALS: BP 118/74
[2018-12-25] MEDS: POTASSIUM CHLORIDE IV SCH ×5 (04:14→22:18)
[2018-12-25] MEDS: SODIUM BICARBONATE IV SCH ×5 (04:14→22:18)
[2018-12-25] MEDS: D5W IV SCH ×5 (04:14→22:18)
--- NOTE | 2018-12-25 07:06 | NUR ---
HAND-OFF: Report given to CT Gonzalez. Pt in stable condition. Endorsed to AM urine specimen needed for urinalysis.
[2018-12-25 07:10] LABS: ALANINE AMINOTRANSFERASE 466 U/L (12-78); ALBUMIN 3.4 G/DL (3.4-5.0); ALKALINE PHOSPHATASE 113 U/L (46-116); ANION GAP 6 mmol/L (5-15); ASPARTATE AMINO TRANSFERASE 415 U/L (15-37); BILIRUBIN,TOTAL 0.4 MG/DL (0.2-1.0); BLOOD UREA NITROGEN 11 mg/dL (7-18); CALCIUM 8.8 MG/DL (8.5-10.1); CARBON DIOXIDE 37 MMOL/L (21-32); CHLORIDE 99 MMOL/L (98-107); CREATINE KINASE > 10000 U/L (26-308); CREATININE 0.7 MG/DL (0.55-1.30); PHOSPHORUS 3.2 MG/DL (2.5-4.9); POTASSIUM 3.3 MMOL/L (3.5-5.1); SODIUM 142 MMOL/L (136-145)
--- NOTE | 2018-12-25 07:30 | NUR ---
NURSE NOTES: Patient lying in bed awake. No complain of pain or distress at this time. Skin intact and dry. IV dressing intact and dry. Bed lowest position. Call light within reach. Will continue to monitor.
[2018-12-25 08:00] VITALS: BP 101/71
[2018-12-25 08:59] LABS: APPEARANCE,URINE CLEAR; BILIRUBIN, URINE NEGATIVE (NEGATIVE); COLOR,URINE PALE YELLOW; GLUCOSE, URINE (UA) NEGATIVE (NEGATIVE); KETONES,URINE NEGATIVE (NEGATIVE); LEUKOCYTE ESTERASE ,URINE NEGATIVE (NEGATIVE); NITRITE,URINE NEGATIVE (NEGATIVE); PH,URINE 8 (4.5-8.0); PROTEIN,URINE NEGATIVE (NEGATIVE); UROBILINOGEN,URINE NORMAL MG/DL (0.0-1.0)
--- NOTE | 2018-12-25 11:14 | General Progress Note ---
Assessment/Plan Assessment/Plan Assessment - EtOH abuse - abnormal LFT, mostly due to Rhabdo - Rhabdo - ? EtOH induced - ? muscle injury after intoxication - ? electrolyte deficiency - ? other (infectious, autoimmune) - longstanding h/o abnormal LFT, ? etiology ( Hep A, B, C negative) - pancreas anomaly Recommendations - follow LFT - Follow CK - Aggressive IV hydration with bicarb - PO ad sara - Consider Rheum eval if CK elevation persists Subjective Allergies: Coded Allergies: No Known Allergies (Unverified , 12/22/18) Subjective above noted continues to feel well no abd pain no N/V tolerating PO no muscle pain denies drug, pharmaceutical, or any medication use at home d/w mother over the phone Objective Last 24 Hour Vital Signs Date Time Temp Pulse Resp B/P (MAP) Pulse Ox O2 Delivery O2 Flow Rate FiO2 12/25/18 09:00 Room Air 12/25/18 08:00 98.3 69 19 101/71 (81) 100 12/25/18 04:00 97.6 65 18 118/74 (89) 95 12/24/18 21:00 Room Air 12/24/18 20:00 99.1 76 17 136/72 (93) 98 12/24/18 16:00 98.6 59 17 100/66 (77) 95 12/24/18 12:00 98.3 68 18 117/74 (88) 98 Intake and Output 12/24/18 12/25/18 19:00 07:00 Intake Total 2400 ml 2955 ml Output Total 1600 ml Balance 2400 ml 1355 ml Intake Oral 2400 ml 480 ml IV Total 2475 ml Output Urine Total 1600 ml # Voids 7 2 Laboratory Tests 12/24/18 12:20: Total Creatine Kinase > 50348S 12/24/18 13:00: Urine Opiates Screen Negative, Urine Barbiturates Screen Negative, Phencyclidine (PCP) Screen Negative, Urine Amphetamines Screen Negative, Urine Benzodiazepines Screen Negative, Urine Cocaine Screen Negative, Urine Marijuana (THC) Screen Negative 12/25/18 04:40: Total Creatine Kinase > 19944O, Sodium Level 142, Potassium Level 3.3L, Chloride Level 99, Carbon Dioxide Level 37H, Anion Gap 6, Blood Urea Nitrogen 11 , Creatinine 0.7, Estimat Glomerular Filtration Rate > 60, Glucose Level 119H, Calcium Level 8.8, Phosphorus Level 3.2, Magnesium Level 1.3L, Total Bilirubin 0.4, Aspartate Amino Transf (AST/SGOT) 415H, Alanine Aminotransferase (ALT/SGPT ) 466H, Alkaline Phosphatase 113, Total Protein 6.7, Albumin 3.4, Globulin 3.3, Albumin/Globulin Ratio 1.0 12/25/18 07:35: Urine Color Pale yellow, Urine Appearance Clear, Urine pH 8, Urine Specific [place] 1.005, Urine Protein Negative, Urine Glucose (UA) Negative, Urine Ketones Negative, Urine Blood Negative, Urine Nitrite Negative, Urine Bilirubin Negative, Urine Urobilinogen Normal, Urine Leukocyte Esterase Negative, Urine RBC 0, Urine WBC 0-2, Urine Squamous Epithelial Cells Occasional, Urine Bacteria Occasional Height (Feet): 5 Height (Inches): 7.00 Weight (Pounds): 119 Objective WDWN NCAT suppple CTA RR abd soft ND NT no edema no muscle TTP Janene Cr MD Dec 25, 2018 11:14
[2018-12-25 12:00] VITALS: BP 126/77
--- NOTE | 2018-12-25 15:07 | NUR ---
NURSE NOTES: Influenza A & B specimen collected and sent to lab
[2018-12-25 16:00] VITALS: BP 116/75
[2018-12-25] MEDS: Magnesium Oxide 400mg tab ORAL SCH (17:17)
[2018-12-25 19:23] LABS: ANION GAP 5 mmol/L (5-15); BLOOD UREA NITROGEN 11 mg/dL (7-18); CALCIUM 9.1 MG/DL (8.5-10.1); CARBON DIOXIDE 33 MMOL/L (21-32); CHLORIDE 100 MMOL/L (98-107); CREATININE 0.8 MG/DL (0.55-1.30); POTASSIUM 3.9 MMOL/L (3.5-5.1); SODIUM 138 MMOL/L (136-145)
--- NOTE | 2018-12-25 19:30 | NUR ---
HAND-OFF: Report given to Claudia FOFANA. Patient in stable condition.
--- NOTE | 2018-12-25 19:55 | NUR ---
NURSE NOTES: Received report from CT Gonzalez. Patient is in bed, aaox4. No signs of distress. No pain , N/V. IV fluids running. Bed low, call light within reach.
[2018-12-25 20:00] VITALS: BP 123/84
--- NOTE | 2018-12-25 20:01 | Cardiology Report ---
APPROVED REPORT EXAM: Two-dimensional and M-mode echocardiogram with Doppler and color Doppler. INDICATION Arrhythmia M-Mode DIMENSIONS IVSd0.7 (0.7-1.1cm)Left Atrium (MM)1.6 (1.6-4.0cm) LVDd4.3 (3.5-5.6cm)Aortic Root3.6 (2.0-3.7cm) PWd0.7 (0.7-1.1cm)Aortic Cusp Exc.1.8 (1.5-2.0cm) IVSs1.2 cm LVDs3.0 (2.5-4.0cm) PWs1.0 cm Normal left ventricular chamber size, systolic function and wall motion. Left ventricular ejection fraction estimated to be 60%. No evidence of left ventricular hypertrophy. No evidence of pericardial effusion . All other cardiac chamber sizes are within normal limits. Mild aortic valve sclerosis with adequate cusp excursion. Mildly thickened mitral valve leaflets with normal excursion. Mild mitral annulus and aortic root calcification. Pulmonic valve not well visualized. IVC at normal size with physiologic collapse . A color flow and spectral Doppler study was performed and revealed: No aortic insufficiency . Normal left ventricular diastolic function . Trace mitral regurgitation. Trace tricuspid regurgitation. Tricuspid systolic velocities suggests peak right ventricular systolic pressure of 14 mmHg.
--- NOTE | 2018-12-25 23:00 | Consultation ---
DATE OF CONSULTATION: 12/25/2018 NEPHROLOGY CONSULTATION CONSULTING PHYSICIAN: Keyon Briscoe M.D. REASON FOR CONSULTATION: Severe rhabdomyolysis. HISTORY OF PRESENT ILLNESS: The patient is a 23-year-old man, admitted after an alcohol binge, has abnormal labs. He apparently had quite a bit of alcohol prior to this admission on a binge, came with severe weakness and nausea. He has had elevated CPK on this admission as follows on 12/23/2018, 22, 94, 322, 17,353 and on 12/25/2018, 14,854. His creatinine is 0.7. Today, he is receiving IV hydration. The patient also had elevated liver enzymes on this admission with normal alkaline phosphatase. He did exercise vigorously in a gym doing weights for about 1-1/2 hours for the 2 days prior to coming in this hospital. He denies any muscle aching. There is apparently history of Wong-Danlos himself and his mother, but he has not had any cardiac problems. He has some hyperflexible joints in his fingers, but no other clinical manifestation of Wong-Danlos. PAST SURGICAL HISTORY: None. ALLERGIES: None. MEDICATIONS: None. HABITS: He has used marijuana and alcohol adamantly. Denies any other drugs. Recently, he had drug skin screen negative. SYSTEM REVIEW: Negative other than as above. PHYSICAL EXAMINATION: GENERAL: The patient is an alert, well-developed man, in no acute distress. VITAL SIGNS: Temperature 98.2, pulse 69, respiratory rate 18, blood pressure 126/77, and O2 saturation 100% on room air. HEENT: Sclerae are nonicteric. Ocular motions intact in all directions. Oral mucosa moist. NECK: No adenopathy or thyroid enlargement. LUNGS: Clear. HEART: Regular rhythm. No murmur. ABDOMEN: Soft without organomegaly or masses. EXTREMITIES: No edema, cyanosis, or clubbing. No trauma. IMPRESSION: 1. Severe rhabdomyolysis likely secondary to alcoholism plus vigorous exercise. 2. Elevated liver enzymes are very likely due to the CPK as his alkaline phosphatase is normal. 3. History of Wong-Danlos. PLAN: Vigorous hydration. His IV rate was increased. Bicarbonate was added to the IV fluids in order to mitigate any renal injury, but so far his kidney function is normal. We will watch him closely in view of his severity of disease. Keyon Briscoe M.D. DR: GASPER JOB#: [id number] CC:
[2018-12-26] VITALS: BP 110/78
--- NOTE | 2018-12-26 03:00 | Progress Note ---
DATE: 12/25/2018 SUBJECTIVE: The patient has no new complaints. No distress. Tolerating diet although appetite is decreased. No tremor. No muscle aches. No shakes or chills. The case was discussed with his mother by telephone, who reiterates historical data as follows. 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 He has never had pancreatitis. He has had transaminitis for years. He had a liver biopsy many years ago. The results were unremarkable. He has never had rhabdomyolysis that he is aware of. No pancreatitis. He has had renal cyst known for many years. Labs today notable for potassium 3.3, magnesium 1.3, and CK above 10,000. AST and ALT remain in the 400. Echocardiogram reveals no abnormality. EKG reveals sinus rhythm with no abnormalities. OBJECTIVE: LUNGS: Clear. CARDIAC: Regular. ABDOMEN: Soft and nontender. EXTREMITIES: Without edema. NEUROLOGIC: Nonfocal. IMPRESSION: 1. Status post alcohol intoxication. 2. Hypokalemia. 3. Hypomagnesemia. 4. Rhabdomyolysis. 5. Wong-Danlos syndrome. 6. Paroxysmal atrial fibrillation precipitated by alcohol toxicity. PLAN: 1. Continued hydration. 2. Monitor CK. 3. Renal and Rheumatology consult called. 4. Potassium and magnesium repletion. Juan Carlos Tavarez M.D. DR: ROSE JOB#: [id number] CC:
[2018-12-26] MEDS: POTASSIUM CHLORIDE IV SCH ×5 (03:05→22:49)
[2018-12-26] MEDS: D5W IV SCH ×5 (03:05→22:49)
[2018-12-26] MEDS: SODIUM BICARBONATE IV SCH ×5 (03:05→22:49)
[2018-12-26 04:00] VITALS: BP 113/68
--- NOTE | 2018-12-26 07:18 | NUR ---
HAND-OFF: Report given to CT Jacobs. Patient stable.
[2018-12-26 07:41] LABS: BASOPHILS % (AUTO) 1.2 % (0.0-2.0); HEMATOCRIT 46.5 % (42.0-52.0); LYMPHOCYTES % (AUTO) 34.4 % (20.0-45.0); MEAN CORPUSCULAR VOLUME 89 FL (80-99); MONOCYTES % (AUTO) 8.6 % (1.0-10.0); NEUTROPHILS % (AUTO) 51.8 % (45.0-75.0); PLATELET COUNT 182 K/UL (150-450); RED BLOOD COUNT 5.21 M/UL (4.70-6.10); RED CELL DISTRIBUTION WIDTH 11.4 % (11.6-14.8); WHITE BLOOD COUNT 4.9 K/UL (4.8-10.8)
[2018-12-26 08:00] VITALS: BP 101/58
[2018-12-26] MEDS: Magnesium Oxide 400mg tab ORAL SCH ×3 (08:27→17:39)
[2018-12-26 08:35] LABS: ALANINE AMINOTRANSFERASE 543 U/L (12-78); ALBUMIN 3.4 G/DL (3.4-5.0); ALBUMIN/GLOBULIN RATIO 1.1 (1.0-2.7); ALKALINE PHOSPHATASE 121 U/L (46-116); ANION GAP 7 mmol/L (5-15); ASPARTATE AMINO TRANSFERASE 403 U/L (15-37); BILIRUBIN,TOTAL 0.5 MG/DL (0.2-1.0); BLOOD UREA NITROGEN 10 mg/dL (7-18); CARBON DIOXIDE 34 MMOL/L (21-32); CHLORIDE 99 MMOL/L (98-107); CREATININE 0.8 MG/DL (0.55-1.30); POTASSIUM 3.6 MMOL/L (3.5-5.1); SODIUM 140 MMOL/L (136-145)
[2018-12-26 08:41] LABS: ANION GAP 8 mmol/L (5-15); BLOOD UREA NITROGEN 10 mg/dL (7-18); CARBON DIOXIDE 32 MMOL/L (21-32); CHLORIDE 99 MMOL/L (98-107); CREATINE KINASE 9530 U/L (26-308); CREATININE 0.8 MG/DL (0.55-1.30); POTASSIUM 3.6 MMOL/L (3.5-5.1); SODIUM 139 MMOL/L (136-145)
--- NOTE | 2018-12-26 10:00 | NUR ---
NURSE NOTES: PT AXOX4, CALM, RESTING IN BED. DENIES PAIN, N/V, OR SOB. IV ON LEFT FOREARM ASYMPTOMATIC, PATENT AND INTACT. CALL LIGHT WITHIN REACH. WILL CONTINUE TO MONITOR.
[2018-12-26 12:00] VITALS: BP 91/48
--- NOTE | 2018-12-26 12:53 | General Progress Note ---
Assessment/Plan Problem List: (1) Rhabdomyolysis ICD Codes: M62.82 - Rhabdomyolysis SNOMED: 627066407 (2) Alcoholic hepatitis ICD Codes: K70.10 - Alcoholic hepatitis without ascites SNOMED: 701330276 (3) Hypomagnesemia ICD Codes: E83.42 - Hypomagnesemia SNOMED: 258014575 Assessment/Plan ck 9530 downtrend, rhabdo from etoh and exercise, continue hydration,Mg ox recommend check ck outpatient after exercise after acute episode resolves Subjective Constitutional: Reports: no symptoms HEENT: Reports: no symptoms Cardiovascular: Reports: no symptoms Respiratory: Reports: no symptoms Gastrointestinal/Abdominal: Reports: no symptoms Genitourinary: Reports: no symptoms Neurologic/Psychiatric: Reports: no symptoms Endocrine: Reports: no symptoms Hematologic/Lymphatic: Reports: no symptoms Allergies: Coded Allergies: No Known Allergies (Unverified , 12/22/18) Objective Last 24 Hour Vital Signs Date Time Temp Pulse Resp B/P (MAP) Pulse Ox O2 Delivery O2 Flow Rate FiO2 12/26/18 09:00 Room Air 12/26/18 08:00 98.2 72 18 101/58 (72) 96 12/26/18 04:00 97.9 58 18 113/68 (83) 97 12/26/18 00:00 98.5 60 18 110/78 (89) 97 12/25/18 21:00 Room Air 12/25/18 20:00 98.5 86 18 123/84 (97) 97 12/25/18 16:00 97.9 71 18 116/75 (89) 100 Intake and Output 12/25/18 12/26/18 19:00 07:00 Intake Total 360 ml 3975 ml Output Total 1000 ml 2000 ml Balance -640 ml 1975 ml Intake Oral 360 ml 1500 ml IV Total 2475 ml Output Urine Total 1000 ml 2000 ml # Voids 1 Laboratory Tests 12/25/18 18:40: Sodium Level 138, Potassium Level 3.9, Chloride Level 100, Carbon Dioxide Level 33H, Anion Gap 5, Blood Urea Nitrogen 11, Creatinine 0.8, Estimat Glomerular Filtration Rate > 60, Glucose Level 111H, Calcium Level 9.1, Magnesium Level 1.9 12/26/18 06:19: Sodium Level 139, Potassium Level 3.6, Chloride Level 99, Carbon Dioxide Level 32, Anion Gap 8, Blood Urea Nitrogen 10, Creatinine 0.8, Estimat Glomerular Filtration Rate > 60, Glucose Level 128H, Calcium Level 9.0, Magnesium Level 1.7L, White Blood Count 4.9, Red Blood Count 5.21, Hemoglobin 16.0, Hematocrit 46.5, Mean Corpuscular Volume 89, Mean Corpuscular Hemoglobin 30.7, Mean Corpuscular Hemoglobin Concent 34.5, Red Cell Distribution Width 11.4L, Platelet Count 182, Mean Platelet Volume 7.6, Neutrophils (%) (Auto) 51.8, Lymphocytes (%) (Auto) 34.4, Monocytes (%) (Auto) 8.6, Eosinophils (%) (Auto) 4.0H, Basophils (%) (Auto) 1.2, Erythrocyte Sedimentation Rate 3, Phosphorus Level 3.0, Total Bilirubin 0.5, Aspartate Amino Transf (AST/SGOT) 403H, Alanine Aminotransferase (ALT/SGPT) 543H, Alkaline Phosphatase 121H, Total Creatine Kinase 9530H, Total Protein 6.6, Albumin 3.4, Globulin 3.2, Albumin/Globulin Ratio 1.1, Thyroid Stimulating Hormone (TSH) 2.218, Anti-Nuclear Antibody Screen [Pending], HIV (1&2) Antibody Rapid Negative, Mycoplasma pneumoniae IgM Ab Titer [Pending] Height (Feet): 5 Height (Inches): 7.00 Weight (Pounds): 119 General Appearance: no apparent distress, alert EENT: normal ENT inspection Neck: normal alignment, supple Cardiovascular: normal rate Abdomen: non tender Extremities: normal range of motion, non-tender Edema: no edema noted Arm (L), no edema noted Arm (R), no edema noted Leg (L), no edema noted Leg (R), no edema noted Pedal (L), no edema noted Pedal (R), no edema noted Generalized Keyon Briscoe MD Dec 26, 2018 12:53
[2018-12-26 16:00] VITALS: BP 113/71
--- NOTE | 2018-12-26 17:07 | NUR ---
CASE MANAGEMENT: REVIEW 12/25/2018 SI: ALCOHOLIC HEPATITIS. INTRACTABLE VOMITING. UGIB T 98.5 HR 86 RR 18 B/P 123/84 SATS 97% ON RA NO LABS TODAY IS: SODIUM BICARB @ 225 mL/HR PEPCID IV Q12H MAG OX PO TID : TO MED/SURG 3 EAST PLAN: AGGRESSIVE HYDRATION 12/26/2018 SI: ALCOHOLIC HEPATITIS. INTRACTABLE VOMITING. UGIB T 98.6 HR 63 RR 18 B/P 91/48 SATS 96% ON RA GLU 128 BNP 9530 AST 403 ALT 543 ALP 121 IS: SODIUM BICARB @ 225 mL/HR PEPCID IV Q12H MAG OX PO TID : TO MED/SURG 3 EAST PLAN: AGGRESSIVE HYDRATION
--- NOTE | 2018-12-26 19:33 | NUR ---
HAND-OFF: Report given to Tyler MATUTE RN.
--- NOTE | 2018-12-26 19:34 | NUR ---
NURSE NOTES: Report taken from CT Jacobs. Patient awake and in bed, A&Ox4. No signs of distress on room air. No complaints of pain. IV site c/d/i and patent. No skin issues present. CK levels elevated, MD made aware. Continue to record accurate I/O per order. Bed in lowest position, call light within reach.
--- NOTE | 2018-12-26 19:51 | General Progress Note ---
Assessment/Plan Assessment/Plan Assessment - EtOH abuse - abnormal LFT, mostly due to Rhabdo - Rhabdo - ? EtOH induced - ? muscle injury after intoxication - ? electrolyte deficiency - ? exercise - ? other (infectious, autoimmune) - longstanding h/o abnormal LFT, ? etiology ( Hep A, B, C negative) - pancreas anomaly Recommendations - follow LFT - Follow CK - Aggressive IV hydration with bicarb - PO ad sara Subjective Allergies: Coded Allergies: No Known Allergies (Unverified , 12/22/18) Subjective above noted continues to feel well CK now 9500 Objective Last 24 Hour Vital Signs Date Time Temp Pulse Resp B/P (MAP) Pulse Ox O2 Delivery O2 Flow Rate FiO2 12/26/18 16:00 98.1 77 19 113/71 (85) 96 12/26/18 12:00 98.6 63 18 91/48 (62) 96 12/26/18 09:00 Room Air 12/26/18 08:00 98.2 72 18 101/58 (72) 96 12/26/18 04:00 97.9 58 18 113/68 (83) 97 12/26/18 00:00 98.5 60 18 110/78 (89) 97 12/25/18 21:00 Room Air 12/25/18 20:00 98.5 86 18 123/84 (97) 97 Intake and Output 12/25/18 12/26/18 19:00 07:00 Intake Total 360 ml 3975 ml Output Total 1000 ml 2000 ml Balance -640 ml 1975 ml Intake Oral 360 ml 1500 ml IV Total 2475 ml Output Urine Total 1000 ml 2000 ml # Voids 1 Laboratory Tests 12/26/18 06:19: White Blood Count 4.9, Red Blood Count 5.21, Hemoglobin 16.0, Hematocrit 46.5, Mean Corpuscular Volume 89, Mean Corpuscular Hemoglobin 30.7, Mean Corpuscular Hemoglobin Concent 34.5, Red Cell Distribution Width 11.4L, Platelet Count 182, Mean Platelet Volume 7.6, Neutrophils (%) (Auto) 51.8, Lymphocytes (%) (Auto) 34.4, Monocytes (%) (Auto) 8.6, Eosinophils (%) (Auto) 4.0H, Basophils (%) (Auto ) 1.2, Erythrocyte Sedimentation Rate 3, Sodium Level 139, Potassium Level 3.6, Chloride Level 99, Carbon Dioxide Level 32, Anion Gap 8, Blood Urea Nitrogen 10 , Creatinine 0.8, Estimat Glomerular Filtration Rate > 60, Glucose Level 128H, Calcium Level 9.0, Phosphorus Level 3.0, Magnesium Level 1.7L, Total Bilirubin 0.5, Aspartate Amino Transf (AST/SGOT) 403H, Alanine Aminotransferase (ALT/SGPT ) 543H, Alkaline Phosphatase 121H, Total Creatine Kinase 9530H, Total Protein 6.6, Albumin 3.4, Globulin 3.2, Albumin/Globulin Ratio 1.1, Thyroid Stimulating Hormone (TSH) 2.218, Anti-Nuclear Antibody Screen [Pending], HIV (1&2) Antibody Rapid Negative, Mycoplasma pneumoniae IgM Ab Titer [Pending] Height (Feet): 5 Height (Inches): 7.00 Weight (Pounds): 119 Objective WDWN NCAT suppple CTA RR abd soft ND NT no edema no muscle TTP Janene Cr MD Dec 26, 2018 19:51
[2018-12-26 20:00] VITALS: BP 125/57
[2018-12-27 00:37] VITALS: BP 129/58
[2018-12-27 04:00] VITALS: BP 116/60
[2018-12-27] MEDS: SODIUM BICARBONATE IV SCH ×4 (04:52→20:07)
[2018-12-27] MEDS: POTASSIUM CHLORIDE IV SCH ×4 (04:52→20:07)
[2018-12-27] MEDS: D5W IV SCH ×4 (04:52→20:07)
--- NOTE | 2018-12-27 07:31 | NUR ---
HAND-OFF: Report given to CT Whit[facility]. Patient asleep, VS stable..
[2018-12-27 08:00] VITALS: BP 120/63
--- NOTE | 2018-12-27 08:30 | NUR ---
NURSE NOTES: Pt is awake, stable, able to verbalize known needs. Ambulatory, reminded to use urinal to keep record of output. Call light is in reach. Bed is in safe position. area free of clutter. Current plan of care will be followed
[2018-12-27 08:57] LABS: ALANINE AMINOTRANSFERASE 753 U/L (12-78); ALBUMIN 3.6 G/DL (3.4-5.0); ALBUMIN/GLOBULIN RATIO 1.1 (1.0-2.7); ALKALINE PHOSPHATASE 146 U/L (46-116); ANION GAP 7 mmol/L (5-15); ASPARTATE AMINO TRANSFERASE 447 U/L (15-37); BILIRUBIN,TOTAL 0.5 MG/DL (0.2-1.0); BLOOD UREA NITROGEN 10 mg/dL (7-18); CALCIUM 9.3 MG/DL (8.5-10.1); CARBON DIOXIDE 37 MMOL/L (21-32); CHLORIDE 97 MMOL/L (98-107); CREATINE KINASE 5579 U/L (26-308); CREATININE 0.9 MG/DL (0.55-1.30); POTASSIUM 3.9 MMOL/L (3.5-5.1); SODIUM 140 MMOL/L (136-145)
[2018-12-27] MEDS: Magnesium Oxide 400mg tab ORAL SCH ×3 (09:30→18:26)
--- NOTE | 2018-12-27 09:43 | NUR ---
NURSE NOTES: Dr Tavarez phoned to verify IV orders running at 225 hour sodium bicarbonate
--- NOTE | 2018-12-27 11:16 | NUR ---
NURSE NOTES: Dr Briscoe called in regards to pharmacy request to verify dose of iv fluids of sodium bicarbonate, running at 225 cc/hr. gave orders to continue rate , and to order cpk for today
--- NOTE | 2018-12-27 11:47 | NUR ---
*-* INSURANCE *-* UPDATED CLINICALS AND REVIEW FAXED Bailee: TASHA Allan;[phone] REF# [id number]
[2018-12-27 12:00] VITALS: BP 129/70
[2018-12-27 12:52] LABS: CREATINE KINASE 5054 U/L (26-308)
--- NOTE | 2018-12-27 15:26 | NUR ---
CASE MANAGEMENT:REVIEW 12/27/18 SI: RHABDOMYOLYSIS 98.1 74 18 120/63 98% ON RA TCK+5054 AST/ALT+447/753 IS: IVF NAHCO3 @225/HR IV PEPCID Q12 MAG OXIDE PO TID : MED/SURG STATUS
--- NOTE | 2018-12-27 15:57 | NUR ---
NURSE NOTES: Currently receiving breathing treatment . remains in stable condition Addendum: 12/27/18 at 1558 by Liz Huang RN error in entry wrong pt
[2018-12-27 16:00] VITALS: BP 106/69
--- NOTE | 2018-12-27 16:01 | NUR ---
NURSE NOTES: Pt is able to verbalize known needs, output is yellow is clear. Call light in reach
--- NOTE | 2018-12-27 16:43 | Nephrology Progress Note ---
Assessment/Plan Problem List: (1) Rhabdomyolysis (2) Alcoholic hepatitis (3) Hypomagnesemia Plan ck 5054 downtrend, continue iv, if <5000 can dc 12/28 Subjective Constitutional: Reports: no symptoms HEENT: Reports: no symptoms Genitourinary: Reports: no symptoms Neurologic/Psychiatric: Reports: no symptoms Objective Objective Last 24 Hour Vital Signs Date Time Temp Pulse Resp B/P (MAP) Pulse Ox O2 Delivery O2 Flow Rate FiO2 12/27/18 09:00 Room Air 12/27/18 08:00 98.1 74 18 120/63 (82) 12/27/18 04:00 98.0 71 18 116/60 (78) 98 12/27/18 00:37 98.5 71 18 129/58 (81) 97 12/26/18 21:00 Room Air 12/26/18 20:00 98.1 70 18 125/57 (79) 97 Intake and Output 12/26/18 12/27/18 19:00 07:00 Intake Total 3525 ml 1960 ml Output Total 2400 ml 5375 ml Balance 1125 ml -3415 ml Intake Oral 1500 ml 1960 ml IV Total 2025 ml Output Urine Total 2400 ml 5375 ml # Voids 3 Laboratory Tests 12/27/18 06:28: Sodium Level 140, Potassium Level 3.9, Chloride Level 97L, Carbon Dioxide Level 37H, Anion Gap 7, Blood Urea Nitrogen 10, Creatinine 0.9, Estimat Glomerular Filtration Rate > 60, Glucose Level 106, Calcium Level 9.3, Total Bilirubin 0.5 , Aspartate Amino Transf (AST/SGOT) 447H, Alanine Aminotransferase (ALT/SGPT) 753H, Alkaline Phosphatase 146H, Total Creatine Kinase 5054H, Total Protein 7.0 , Albumin 3.6, Globulin 3.4, Albumin/Globulin Ratio 1.1 Height (Feet): 5 Height (Inches): 7.00 Weight (Pounds): 119 General Appearance: no apparent distress EENT: normal ENT inspection Neck: normal alignment Cardiovascular: normal rate Respiratory/Chest: lungs clear Abdomen: non tender, soft, no organomegaly Extremities: other - no edema Neurologic: rn forensic II-XII grossly normal Keyon Brisceo MD Dec 27, 2018 16:43
--- NOTE | 2018-12-27 17:19 | NUR ---
NURSE NOTES: news writer entered room iv is plugged out of wall and beeping. pt qued if he attempted to go to restroom he denied it attempting to do so cord has been put in socket x3 . IV site is patent and flowing well . IV delayed in order to verify dose, pt went to shower as well . Remains in stable condition
--- NOTE | 2018-12-27 19:20 | NUR ---
NURSE NOTES: PT REMAINS IN STABLE CONDITION. DR LEE HERE . PT INFORMED EARLIER IN SHIFT IN REGARDS TO LAB ORDERS AND FLOW OF IV RATE AT 225 CC/HR. CALL LIGHT IS IN REACH URINE OUTPUT IS NORMAL AT 3100 TOTAL 12 HOUR SHIFT. CALL LIGHT IS IN REACH. CURRENT PLAN OF CARE WILL BE FOLLOWED. ALERT AND ORIENTATED . NO SIGNS OF CONFUSION OR ALCOHOL WITHDRAWAL
[2018-12-27 20:00] VITALS: BP 123/78
--- NOTE | 2018-12-27 20:06 | NUR ---
HAND-OFF: Report given to PAUL FOFANA.
--- NOTE | 2018-12-27 20:07 | NUR ---
NURSE NOTES: Received report & pt from CT [facility]. Pt lying in bed, a&ox4, in room air. No s/s of acute distress & no c/o pain. Reminded pt to use urinal & don't flush urine in toilet for accurate I&O & pt verbalized understanding. IV site intact & S/L'd. Bed in lowest position, call light within reach. Will continue to monitor.
--- NOTE | 2018-12-27 21:49 | General Progress Note ---
Assessment/Plan Assessment/Plan Assessment - EtOH abuse - abnormal LFT, mostly due to Rhabdo - Rhabdo - ? EtOH induced - ? muscle injury after intoxication - ? electrolyte deficiency - ? exercise - ? other (infectious, autoimmune) - longstanding h/o abnormal LFT, ? etiology ( Hep A, B, C negative) - pancreas anomaly Recommendations - follow LFT - Follow CK - Aggressive IV hydration with bicarb - PO ad sara - d/c per renal recs Subjective Allergies: Coded Allergies: No Known Allergies (Unverified , 12/22/18) Subjective above noted continues to feel well CK now just over 5000 Objective Last 24 Hour Vital Signs Date Time Temp Pulse Resp B/P (MAP) Pulse Ox O2 Delivery O2 Flow Rate FiO2 12/27/18 16:00 98.3 68 19 106/69 (81) 12/27/18 12:00 97.0 66 20 129/70 (89) 12/27/18 09:00 Room Air 12/27/18 08:00 98.1 74 18 120/63 (82) 12/27/18 04:00 98.0 71 18 116/60 (78) 98 12/27/18 00:37 98.5 71 18 129/58 (81) 97 Intake and Output 12/26/18 12/27/18 19:00 07:00 Intake Total 3525 ml 1960 ml Output Total 2400 ml 5375 ml Balance 1125 ml -3415 ml Intake Oral 1500 ml 1960 ml IV Total 2025 ml Output Urine Total 2400 ml 5375 ml # Voids 3 Laboratory Tests 12/27/18 06:28: Sodium Level 140, Potassium Level 3.9, Chloride Level 97L, Carbon Dioxide Level 37H, Anion Gap 7, Blood Urea Nitrogen 10, Creatinine 0.9, Estimat Glomerular Filtration Rate > 60, Glucose Level 106, Calcium Level 9.3, Total Bilirubin 0.5 , Aspartate Amino Transf (AST/SGOT) 447H, Alanine Aminotransferase (ALT/SGPT) 753H, Alkaline Phosphatase 146H, Total Creatine Kinase 5054H, Total Protein 7.0 , Albumin 3.6, Globulin 3.4, Albumin/Globulin Ratio 1.1 Height (Feet): 5 Height (Inches): 7.00 Weight (Pounds): 119 Objective WDWN NCAT suppple CTA RR abd soft ND NT no edema no muscle TTP Janene Cr MD 25, 2019 21:49
[2018-12-28] VITALS: BP 126/80
[2018-12-28] MEDS: D5W IV SCH ×3 (00:46→10:50)
[2018-12-28] MEDS: POTASSIUM CHLORIDE IV SCH ×3 (00:46→10:50)
[2018-12-28] MEDS: SODIUM BICARBONATE IV SCH ×3 (00:46→10:50)
--- NOTE | 2018-12-28 07:38 | NUR ---
HAND-OFF: Report written through [facility] paper to [facility]. JOSE rankin.
[2018-12-28 08:00] VITALS: BP 113/80
--- NOTE | 2018-12-28 08:12 | NUR ---
NURSE NOTES: Pt received sleeping. Call light is in reach. Pt is ambulatory, able to verbalize known needs. Current plan of care will be followed
--- NOTE | 2018-12-28 08:18 | NUR ---
NURSE NOTES: cpk labs are pending
[2018-12-28 08:24] LABS: ALANINE AMINOTRANSFERASE 884 U/L (12-78); ALBUMIN 3.5 G/DL (3.4-5.0); ALBUMIN/GLOBULIN RATIO 1.1 (1.0-2.7); ALKALINE PHOSPHATASE 157 U/L (46-116); ANION GAP 7 mmol/L (5-15); ASPARTATE AMINO TRANSFERASE 435 U/L (15-37); BILIRUBIN,TOTAL 0.4 MG/DL (0.2-1.0); BLOOD UREA NITROGEN 13 mg/dL (7-18); CALCIUM 8.9 MG/DL (8.5-10.1); CARBON DIOXIDE 34 MMOL/L (21-32); CHLORIDE 97 MMOL/L (98-107); CREATINE KINASE 1590 U/L (26-308); CREATININE 0.9 MG/DL (0.55-1.30); POTASSIUM 3.9 MMOL/L (3.5-5.1); SODIUM 138 MMOL/L (136-145)
--- NOTE | 2018-12-28 08:41 | NUR ---
CASE MANAGEMENT:REVIEW 12/28/18. SI: RHABDOMYOLYSIS. ALCOHOLIC PANCREATITIS 98.5 72 19 126/80 98% ON RA AST/ALT+435/884 TCK+1590 IS: IVF NAHCO3 @225/HR IV PEPCID Q12 MAG OXIDE PO TID IV ZOFRAN Q6HRS PRN : MED/SURG STATUS 3 EAST DCP: PATIENT IS FROM HOME
[2018-12-28] MEDS: Magnesium Oxide 400mg tab ORAL SCH ×2 (09:23→12:23)
--- NOTE | 2018-12-28 09:36 | NUR ---
*-* INSURANCE *-* UPDATED CLINICALS AND REVIEW FAXED Bailee: TASHA Allan;[phone] REF# [id number]
--- NOTE | 2018-12-28 11:48 | Nephrology Progress Note ---
Assessment/Plan Problem List: (1) Rhabdomyolysis (2) Alcoholic hepatitis (3) Hypomagnesemia (4) Wong-Danlos disease Plan ck 5054 downtrend, discontinue iv, ck 1590 can dc 12/28 Subjective Constitutional: Reports: no symptoms HEENT: Reports: no symptoms Genitourinary: Reports: no symptoms Neurologic/Psychiatric: Reports: no symptoms Objective Objective Last 24 Hour Vital Signs Date Time Temp Pulse Resp B/P (MAP) Pulse Ox O2 Delivery O2 Flow Rate FiO2 12/28/18 09:00 Room Air 12/28/18 08:00 98.4 81 113/80 (91) 12/28/18 00:00 98.5 72 19 126/80 (95) 98 12/27/18 21:00 Room Air 12/27/18 20:00 98.7 70 18 123/78 (93) 98 12/27/18 16:00 98.3 68 19 106/69 (81) 12/27/18 12:00 97.0 66 20 129/70 (89) Intake and Output 12/27/18 12/28/18 19:00 07:00 Intake Total 4260 ml 3275 ml Output Total 3100 ml 2800 ml Balance 1160 ml 475 ml Intake Oral 3260 ml 800 ml IV Total 2475 ml Other 1000 ml Output Urine Total 3100 ml 2800 ml # Voids 6 2 # Bowel Movements 1 Laboratory Tests 12/28/18 06:37: Sodium Level 138, Potassium Level 3.9, Chloride Level 97L, Carbon Dioxide Level 34H, Anion Gap 7, Blood Urea Nitrogen 13, Creatinine 0.9, Estimat Glomerular Filtration Rate > 60, Glucose Level 123H, Calcium Level 8.9, Total Bilirubin 0.4 , Aspartate Amino Transf (AST/SGOT) 435H, Alanine Aminotransferase (ALT/SGPT) 884H, Alkaline Phosphatase 157H, Total Creatine Kinase 1590H, Total Protein 6.7 , Albumin 3.5, Globulin 3.2, Albumin/Globulin Ratio 1.1 Height (Feet): 5 Height (Inches): 7.00 Weight (Pounds): 119 General Appearance: no apparent distress EENT: normal ENT inspection Neck: normal alignment Cardiovascular: regular rhythm Respiratory/Chest: lungs clear Abdomen: non tender, soft Extremities: non-tender Neurologic: cloth baler II-XII grossly normal Keyon Briscoe MD Dec 28, 2018 11:48
[2018-12-28 12:00] VITALS: BP 105/72
--- NOTE | 2018-12-28 12:08 | NUR ---
NURSE NOTES: Dr Briscoe here gave orders to discontinue sodium carbonate
--- NOTE | 2018-12-28 13:51 | Consultation ---
DATE OF CONSULTATION: 12/28/2018 NOTE: POOR AUDIO RHEUMATOLOGICAL CONSULTATION I was asked by Dr. Tavarez to assess this 23-year-old patient because of recurrent poliomyelitis. HISTORY OF PRESENT ILLNESS: The patient was admitted to this hospital because of acute alcohol intoxication. During the he was found to have an elevated CK that initially went up to more than 10,000 on 12/24/2018. This was associated with elevated SGOT and SGPT and alkaline phosphatase. His total CK was persistently high for several days ; however, June 27, total CK continued to decline together with liver function tests, declined, total CK went from 9500 to 5500. Liver enzymes substantially increased, alkaline phosphatase went from 121 to 156, SGOT 554 to 753, and SGPT from 413 to 447. During this time, the patient did not develop any fever, myalgia, or weakness. Rheumatological consultation was called to assist in the management of this case. The patient had similar episode 4 years ago. The patient was admitted to this hospital, the for this admission is heavy alcohol intoxication. During the CK was above 10,000. He had regarding muscle pain and muscle weakness. heparin 4 years ago, but he has similar finding in both cases. The patient hospital without any medical intervention. 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 . FAMILY HISTORY: Both parents are in good health. He has 1 brother in good health and 1 sister in good health. acute intoxication . HABITS: The patient smoked 1 pack a day for the last 10 years and drinks heavily whiskey, which he confirmed the use of illicit drugs. REVIEW OF SYSTEMS: CARDIOVASCULAR: The patient denied any chest pain, shortness of breath, palpitations, or dizziness. PULMONARY: The patient denied any cough, wheezing, or expectoration. GASTROINTESTINAL: His appetite is moderate. His weight is stable. He has no dysphagia or dyspepsia. No bowel movement disorder. His appetite . GENITOURINARY: The patient denies any dysuria, frequency, incontinence, or nocturia. JOINTS: The patient denies any joint swelling, stiffness to extremities, photosensitivity, dry eyes, or alopecia. POWER OPERATOR: His sleep is of good quality. He has no numbness, tingling, or seizure disorder and he has no headache. PHYSICAL EXAMINATION: VITAL SIGNS: Blood pressure is 127/78, his pulse is 70, respirations are 18, temperature 98.7. HEENT: Eyes were normal. Pupils were round, equal, and reactive to light. Sclerae was white. Conjunctiva was pink. Extraocular movements were normal. Temporal arteries were palpable bilaterally. There was no bilateral temporal wasting. Visual kincaid to confrontation were normal, and neglect sign was negative. ENT, mucous membranes were not dehydrated. Auditory canals were clear and tympanic membranes could not be visualized. Nasal cavity was not congested. Nasal septum was intact. Soft palate was free of ulcerations. Pharynx was clear from exudate or tonsillar hypertrophy. Uvula oriana to phonation. Tongue was moist, midline, and normally papillated. NECK: Supple. There was no goiter. No mass. No lymphadenopathy. There was no JVD, no bruits. Carotid upstroke was 2+. LUNGS: Clear. HEART: PMI was in the fourth left intercostal space in the midclavicular line. There was normal S1 and normal S2. There was no murmur. No arrhythmia. No S3. No S4. No pericardial rub. ABDOMEN: Soft, nontender without organomegaly. There were no masses palpable. Normal bowel sounds without bruits. There was no guarding. No rebound tenderness. No ascites. No hernia. No CVA tenderness. Liver span was 8 cm, mostly nontender. EXTREMITIES: No cyanosis, no clubbing, and no edema. Extremities were warm. NEUROLOGICAL: Reflexes in biceps, triceps, and brachioradialis were symmetric and equal. Patellar retinaculum was symmetric and equal. Plantars were in flexion. Cranial nerves II through XII were symmetric and equal. Cerebellar function, gait . [id number], rapid alternating movements, and Romberg sign were all declined by the patient. There was no tremor. No nystagmus. No extrapyramidal rigidity. Sensory exam to pinprick, cotton touch, position are grossly normal. Motor strength was 5/5 against resistance in the upper and lower extremities in proximal and distal muscles and the patient was did not produce sensations of . However, the patient was able to perform in the upper and lower extremity, which he did not have any difficulties. LABORATORY DATA: Total CK today is 5000. Hemoglobin is 16.0, hematocrit is 46.5, MCV of 89, WBC of 4.9, and platelets is 182. His BUN and creatinine are 10 and 0.8 respectively. . Liver function tests are . Sodium is 140, potassium 3.9, chloride 97, CO2 is 37, and glucose is 106. His calcium is 9.3. His TSH is normal. IMPRESSION: The patient with acute alcoholic myelitis not associated with . There is no family history of autoimmune disease and no medical history . Repeat laboratory tests should be done in the a.m. Alise Piper M.D. DR: ES JOB#: [id number] CC:
--- NOTE | 2018-12-28 13:51 | Progress Note ---
DATE: 12/26/2018 INTERNAL MEDICINE PROGRESS NOTE SUBJECTIVE: The patient has no complaints. No muscle aches, shortness of breath, abdominal pain, nausea, or vomiting. CK is decreased slightly to 9500 today. OBJECTIVE: VITAL SIGNS: Blood pressure 113/71, pulse 77, respiratory rate 19, afebrile. LUNGS: Clear. CARDIAC: Regular. Normal S1, S2. ABDOMEN: Soft. No focal tenderness. EXTREMITIES: With no edema. IMPRESSION: 1. Rhabdomyolysis. 2. Alcohol abuse. 3. Transaminitis due to rhabdomyolysis. 4. Longstanding history of transaminitis. 5. Pancreatic anomaly. 6. syndrome. PLAN: 1. Continue hydration. 2. Repeat CK level tomorrow. 3. Appreciate GI and renal followup. 4. Awaiting Rheumatology evaluation. Juan Carlos Tavarez M.D. DR: MARTY JOB#: [id number] CC:
--- NOTE | 2018-12-28 13:51 | Progress Note ---
DATE: 12/27/2018 INTERNAL MEDICINE PROGRESS NOTE SUBJECTIVE: The patient feels well. He still has no complaints including abdominal pain, muscle weakness, muscle aches, palpitations, chest pain, or shortness of breath. No nausea or vomiting. OBJECTIVE: VITAL SIGNS: The patient's vitals are stable. Blood pressure 106/69, pulse 68, respirations 19, and afebrile. CK now is 5400. NECK: Supple. LUNGS: Clear. ABDOMEN: Soft. No edema. No hepatomegaly. IMPRESSION: 1. Rhabdomyolysis, improved. 2. Alcohol abuse. 3. Wong-Danlos syndrome. 4. Chronic transaminitis. PLAN: 1. Continue hydration. 2. Monitor CK levels. 3. Discharge planning if further drop in CK levels noted. Juan Carlos Tavarez M.D. DR: CHARLY JOB#: [id number] CC:
[2018-12-28] MEDS ORDERED: Tubing Blood Filter IV ONE (14:59)
--- NOTE | 2018-12-28 15:00 | NUR ---
Pt discharge with discharge packet and discharge instructions. Provided pt teaching in regards to increase fluids, and caution fluid alcohol intake. Pt verbalized understanding. IV removed , pt in stable condition , breathing room air gait is stable. Pt will follow up with Dr Tavarez. Pt escorted to [facility]. Verbalized he will participate in sober living.
--- NOTE | 2018-12-28 19:14 | Cardiology Report ---
APPROVED REPORT EKG Measurement Heart [id number] Normal sinus rhythm Normal ECG
--- NOTE | 2018-12-28 19:14 | Cardiology Report ---
APPROVED REPORT EKG Measurement Heart [id number] Normal sinus rhythm with sinus arrhythmia Normal ECG
--- NOTE | 2018-12-28 19:20 | General Progress Note ---
Assessment/Plan Assessment/Plan Assessment - EtOH abuse - abnormal LFT, mostly due to Rhabdo - Rhabdo - ? EtOH induced - ? muscle injury after intoxication - ? electrolyte deficiency - ? exercise - ? other (infectious, autoimmune) - longstanding h/o abnormal LFT, ? etiology ( Hep A, B, C negative) - pancreas anomaly Recommendations - follow LFT - Follow as outpatient - has my card - PO ad sara - d/c per renal recs Subjective Allergies: Coded Allergies: No Known Allergies (Unverified , 12/22/18) Subjective above noted seen early am continues to feel well CK lower Objective Last 24 Hour Vital Signs Date Time Temp Pulse Resp B/P (MAP) Pulse Ox O2 Delivery O2 Flow Rate FiO2 12/28/18 12:00 98.4 71 18 105/72 (83) 12/28/18 09:00 Room Air 12/28/18 08:00 98.4 81 113/80 (91) 12/28/18 00:00 98.5 72 19 126/80 (95) 98 12/27/18 21:00 Room Air 12/27/18 20:00 98.7 70 18 123/78 (93) 98 Intake and Output 12/27/18 12/28/18 19:00 07:00 Intake Total 4260 ml 3275 ml Output Total 3100 ml 2800 ml Balance 1160 ml 475 ml Intake Oral 3260 ml 800 ml IV Total 2475 ml Other 1000 ml Output Urine Total 3100 ml 2800 ml # Voids 6 2 # Bowel Movements 1 Laboratory Tests 12/28/18 06:37: Sodium Level 138, Potassium Level 3.9, Chloride Level 97L, Carbon Dioxide Level 34H, Anion Gap 7, Blood Urea Nitrogen 13, Creatinine 0.9, Estimat Glomerular Filtration Rate > 60, Glucose Level 123H, Calcium Level 8.9, Total Bilirubin 0.4 , Aspartate Amino Transf (AST/SGOT) 435H, Alanine Aminotransferase (ALT/SGPT) 884H, Alkaline Phosphatase 157H, Total Creatine Kinase 1590H, Total Protein 6.7 , Albumin 3.5, Globulin 3.2, Albumin/Globulin Ratio 1.1 Height (Feet): 5 Height (Inches): 7.00 Weight (Pounds): 119 Objective WDWN NCAT suppple CTA RR abd soft ND NT no edema no muscle TTP Janene Cr MD Dec 28, 2018 19:20
--- NOTE | 2018-12-30 09:03 | Discharge Summary ---
Discharge Summary Discharge Summary _ DATE OF ADMISSION: 12/22/2018 DATE OF DISCHARGE: 12/28/2018 DISCHARGED BY: REASON FOR ADMISSION: 23 years old male with past medical history of Wong -Danlos syndrome, presented to emergency room with epigastric pain ,nausea and vomiting,but no signs of blood. Patient reported drinking heavily alcohol last night. Patient reported being quite ill from the binge drinking. Upon evaluation in emergency department patient was tachycardic, blood pressure was stable. Laboratory workup revealed leukocytosis with WBC 22.9. Hemoglobin 17.2, hematocrit 49.1. Potassium 3.3. BUN 26, creatinine 1.2. Glucose 84. AST 1296. ALT 1165. Alkaline phosphatase 166. Albumin 4.5. Lipase 130. CK 2294. Urine toxicology screen was negative. Urinalysis revealed no evidence of UTI. EKG reveals sinus tachycardia no acute ischemic changes. CT scan of the abdomen and pelvis demonstrated unusual finding for pancreatic tail and body, presumably congenital. No definite underlying colonic pathology to suggest colitis. No other definite acute abnormality. Noted bilateral rounded renal lesions with high suspicion for hyperdense proteinaceous cysts, but solid mass lesion were also possible. In emergency department patient was started on the IV hydration and provided with analgesia. Tachycardia resolved. Patient was admitted for further management. CONSULTANTS: GI specialist Dr. Cr [address] Briscoe substation operator transforming Dr. Piper HOSPITAL COURSE: Patient started on fluid resuscitation. Potassium was replaced. Patient initially was kept n.p.o. Patient was followed -up with LFT. Renal ultrasound was ordered in lieu of the findings on the CT of the abdomen, which revealed right upper pole and left lower pole soft tissue attenuation lesions , described on recent CT scan . Both demonstrated to be cysts, predominantly proteinaceous. Nonobstructive left renal calculus. Pain management was addressed. Symptomatic treatment provided with antiemetic on as needed basis. Echocardiogram revealed preserved ejection fraction of 60% with no evidence of left ventricular hypertrophy. No evidence of pericardial effusion. No evidence of wall motion abnormality. Right ventricular systolic pressure of 14. Residential Interior Designer closely followed. CK was closely monitor and both downtrending. Renal parameters and electrolytes were closely monitored. Electrolytes corrected as needed/ magnesium and potassium. Nephrotoxins were avoided. CK down to 1590. Residential Interior Designer recommended avoid nephrotoxic in future and cleared patient for discharge. GI specialist closely followed. LFT trending down. AST from initial 1296 down to 425. ALT from 1165 down to 884. Lipase within normal limits. CK trending down. GI prophylaxis provided. Per GI specialist, abnormal LFT were most likely due to rhabdomyolysis and were trending down along with CK. Rhabdomyolysis was possibly induced by ETOH . According to patient, he had a long-standing history of abnormal LFT with unclear etiology. 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 Serology for HCV , cytomegalovirus and EBV negative. Hepatitis panel was negative. Mycobacteria pneumonia IgM titer negative. GABBY screen was negative. Patient initially started on empiric antibiotic. Leukocytosis resolved next day . No fevers. Antibiotics stopped. myelitis Patient was cleared for discharge by all consultants . LFT and CK downtrending ,pain resolved . Patient able to tolerate diet, no further nausea and vomiting , Patient was strongly on abstinence from heavy alcohol intake. Patient to follow-up with GI specialist as outpatient for follow-up LFT . FINAL DIAGNOSES: Acute alcoholic hepatitis ETOH abuse Leukocytosis-resolved Abnormal LFT, most likely due to rhabdomyolysis Chronic abnormal LFT -per patient Pancreatic anomaly Electrolyte abnormalities: hypokalemia , hypomagnesemia Dehydration with hypovolemia Paroxysmal atrial fibrillation Rhabdomyolysis Wong-Danlos disease DISCHARGE MEDICATIONS: No medications upon discharge . DISCHARGE INSTRUCTIONS: Patient was discharged home. Follow up with primary care provider in one week. I have been assigned to dictate discharge summary for this account. I was not involved in the patient's management. Margarita Reyes NP Dec 30, 2018 09:03
== END 2018-12-28 15:00 | disposition home or self-care (01) | DRG 433 ==
LOC: EMR 11:24 → EDBEDREQ 13:43 → 3E 14:35
DX: K70.10 Alcoholic hepatitis without ascites (principal); M62.82 Rhabdomyolysis; Q45.3 Other congenital malformations of pancreas and pancreatic duct; Q79.6 Ehlers-Danlos syndromes; E46 Unspecified protein-calorie malnutrition; F10.129 Alcohol abuse with intoxication, unspecified; E87.6 Hypokalemia; E86.0 Dehydration; E83.42 Hypomagnesemia; I48.0 Paroxysmal atrial fibrillation; R74.0 Nonspecific elevation of levels of transaminase and lactic acid dehydrogenase [LDH]
CPT/HCPCS: 36415; 74177; 76770; 80048; 80053; 80076; 80307; 81001; 81003; 82248; 82550; 83690; 83735; 84100; 84443; 85007; 85025; 85610; 85651; 85730; 86039; 86308; 86665; 86695; 86703; 86705; 86709; 86710; 86738; 86803; 87340; 87496; 93005; 93306; 96361; 96374; 96375; 96376; 99285; J2405; J8499